=== PATIENT | male | born 1960 | race Caucasian/White ===

== ENCOUNTER 2017-04-14 15:31 | Emergency (ER) | payer SELFPAY ==
[~2017-04-14] VITALS: Ht 165.1 cm; Wt 71.4 kg
[2017-04-14] MEDS ORDERED: BACITRACIN OINT 500U/GM, 15 GM TP PRN (18:30)
[2017-04-14] MEDS ORDERED: BACITRACIN ZINC OINT 500U/GM, 0.9 GM ONE (18:39)
[2017-04-14 18:47] VITALS: BP 149/94
== END 2017-04-14 18:57 | disposition home or self-care (01) ==
LOC: ED 18:53
DX: M79.671 Pain in right foot (principal)
CPT/HCPCS: 99283

== ENCOUNTER 2018-02-14 17:56 | Emergency (ER) | payer MEDICAID, OTHER ==
[~2018-02-14] VITALS: Ht 165.1 cm; Wt 67.2 kg
[2018-02-14 18:51] LABS: BASOPHILS # (AUTO) 0.01 x10^3/uL (0-0.1); BASOPHILS % (AUTO) 0 % (0-1); EOSINOPHILS % (AUTO) 0 % (1-7); LYMPHOCYTES # (AUTO) 0.44 x10^3/uL (1-3.4); LYMPHOCYTES % (AUTO) 10 % (22-44); MD NO; MEAN CORPUSCULAR HEMOGLOBIN 31.3 pg (27.5-34.5); MEAN CORPUSCULAR HGB CONC 34.6 g/dL (33.2-36.2); MEAN CORPUSCULAR VOLUME 90.3 fL (81-97); MEAN PLATELET VOLUME 8.1 fL (7.4-10.4); MONOCYTES # (AUTO) 0.18 x10^3/uL (0.2-0.8); MONOCYTES % (AUTO) 4 % (2-9); NEUTROPHILS # (AUTO) 3.62 x10^3/uL (1.8-6.8); NEUTROPHILS % (AUTO) 85 % (42-75); PLATELET COUNT 159 x10^3/uL (130-400); RED BLOOD COUNT 4.51 x10^6/uL (4.38-5.82); RED CELL DISTRIBUTION WIDTH 13.1 % (9.4-14.8)
[2018-02-14 19:00] LABS: ALBUMIN 3.7 g/dL (3.4-5.0); ANION GAP 9 mmol/L (5-15); CHLORIDE 99 mmol/L (98-107); CREATININE 1.31 mg/dL (0.7-1.3)
[2018-02-14 19:04] LABS: TROPONIN I < 0.015 ng/mL (0.000-0.045)
[2018-02-14] MEDS ORDERED: ACETAMINOPHEN 500 MG TABLET ONE (19:05)
[2018-02-14] MEDS ORDERED: ACETAMINOPHEN 500 MG TABLET PO ONE (19:30)
[2018-02-14 19:37] VITALS: BP 105/78
[2018-02-14] MEDS ORDERED: AZITHROMYCIN 500 MG TABLET PO ONE (20:00)
[2018-02-14] MEDS ORDERED: AZITHROMYCIN 500 MG TABLET ONE (20:07)
== END 2018-02-14 22:53 | disposition home or self-care (01) ==
LOC: ED 22:51
DX: J15.9 Unspecified bacterial pneumonia (principal); R05 Cough
CPT/HCPCS: 36415; 71045; 80048; 82040; 83605; 84145; 84484; 85025; 87040; 93005; 99284

== ENCOUNTER 2018-04-19 07:32 | Emergency (ER) | payer MEDICAID ==
[~2018-04-19] VITALS: Ht 165.1 cm; Wt 69.2 kg
[2018-04-19 07:37] VITALS: BP 151/101
--- NOTE | 2018-04-19 07:49 | NUR ---
FIRST CONTACT WITH PT. ED PA at bedside. Pt presents to ED with right knee pain. NADN. All safety measures in place.
[2018-04-19] MEDS ORDERED: KETOROLAC 30 MG/1 ML ONE (07:57)
[2018-04-19] MEDS ORDERED: KETOROLAC 30 MG/1 ML IM ONE (08:00)
--- NOTE | 2018-04-19 08:49 | NUR ---
Patient given discharge instructions and they have confirmed that they understand the instructions. Patient ambulatory with steady gait. Pt left with prescription and all personal belongings and discharge paperwork.
== END 2018-04-19 08:51 | disposition home or self-care (01) ==
LOC: ED 08:05
DX: M70.41 Prepatellar bursitis, right knee (principal)
CPT/HCPCS: 96372; 99283; J1885

== ENCOUNTER 2018-09-06 21:16 | Emergency (ER) | payer MEDICAID ==
[~2018-09-06] VITALS: Ht 165.1 cm; Wt 69.1 kg
[2018-09-06 21:26] VITALS: BP 111/77
[2018-09-06 22:15] LABS: BASOPHILS # (AUTO) 0.04 x10^3/uL (0-0.1); BASOPHILS % (AUTO) 1 % (0-1); EOSINOPHILS # (AUTO) 0.28 x10^3/uL (0-0.4); EOSINOPHILS % (AUTO) 5 % (1-7); LYMPHOCYTES # (AUTO) 1.52 x10^3/uL (1-3.4); LYMPHOCYTES % (AUTO) 29 % (22-44); MD NO; MEAN CORPUSCULAR HEMOGLOBIN 32.2 pg (27.5-34.5); MEAN CORPUSCULAR HGB CONC 33.4 g/dL (33.2-36.2); MEAN CORPUSCULAR VOLUME 96.2 fL (81-97); MEAN PLATELET VOLUME 8.4 fL (7.4-10.4); MONOCYTES # (AUTO) 0.56 x10^3/uL (0.2-0.8); MONOCYTES % (AUTO) 11 % (2-9); NEUTROPHILS # (AUTO) 2.84 x10^3/uL (1.8-6.8); NEUTROPHILS % (AUTO) 54 % (42-75); PLATELET COUNT 255 x10^3/uL (130-400); RED BLOOD COUNT 3.99 x10^6/uL (4.38-5.82); RED CELL DISTRIBUTION WIDTH 13.3 % (9.4-14.8)
[2018-09-06 22:22] LABS: ANION GAP 6 mmol/L (5-15); CALCIUM 8.2 mg/dL (8.5-10.1); CHLORIDE 113 mmol/L (98-107); CREATININE 0.96 mg/dL (0.7-1.3)
== END 2018-09-06 22:57 | disposition home or self-care (01) ==
LOC: ED 22:50
DX: R60.0 Localized edema (principal); F15.10 Other stimulant abuse, uncomplicated; L55.9 Sunburn, unspecified; F17.200 Nicotine dependence, unspecified, uncomplicated
CPT/HCPCS: 36415; 80048; 85025; 99283

== ENCOUNTER 2019-05-18 21:14 | Emergency (ER) | payer MEDICAID ==
[~2019-05-18] VITALS: Ht 165.1 cm; Wt 69.1 kg
[2019-05-18 21:22] VITALS: BP 130/85
== END 2019-05-18 22:36 | disposition home or self-care (01) ==
LOC: ED 22:02
DX: J15.9 Unspecified bacterial pneumonia (principal); R06.00 Dyspnea, unspecified; F17.200 Nicotine dependence, unspecified, uncomplicated
CPT/HCPCS: 71045; 93005; 99283

== ENCOUNTER 2019-10-19 16:15 | Emergency (ER) | payer MEDICAID ==
[~2019-10-19] VITALS: Ht 165.1 cm; Wt 68.8 kg
--- NOTE | 2019-10-19 16:44 | NUR ---
TASK RN ASSISTING PRIMARY RN SARAH. 59 Y/O M PRESENTS STATING "I JUST WANT MY VITAL SIGNS CHECKED, I THINK THE HEAT OUTSIDE IS GETTING TO ME. I GOT A LETTER FROM [facility] TELLING ME I AM PREDIABETIC AND MY TRIGLYCERIDES ARE HIGH, I WENT THERE FOR HELP AND THEY WOULDN'T HELP ME OR GIVE ME ANY WATER, SO I CAME HERE TO TALK TO A REAL DOCTOR. I NEED A NEW DOCTOR." PT WITH ELEVATED BP, HX HTN "I HAVE HIGH BLOOD PRESSURE, ALWAYS HAVE, ALWAYS WILL, I DON'T TAKE ANY MEDICATIONS, I DON'T NEED THEM." CONT PULSE OX, BP MONITORS APPLIED. VSS. A&OX4. AWAITING EVALUATION BY ERP. FALL PRECAUTIONS IN PLACE, SIDE RAILS UPX2.
[2019-10-19 16:45] VITALS: BP 173/106
--- NOTE | 2019-10-19 16:52 | NUR ---
TASK RN. PT DENIES ANY CP, SOB, VALIENTE, DIZZINESS, VISUAL CHANGES, DRY MOUTH, COUGH, OR ANY PAIN. TONIA TAVAREZ AT BEDSIDE FOR EVALUATION. PT REPORTS HE "HAS FOLLOW UP APPT WITH [facility] NEXT WEEK." DISCUSSED BP WITH TONIA TAVAREZ, AWARE, NO NEW ORDERS RECEIVED AT THIS TIME.
== END 2019-10-19 17:39 | disposition home or self-care (01) ==
LOC: ED 17:36
DX: R42 Dizziness and giddiness (principal); R53.83 Other fatigue; E78.1 Pure hyperglyceridemia
CPT/HCPCS: 99281

== ENCOUNTER 2020-01-15 13:56 | Emergency (ER) | payer MEDICAID ==
[~2020-01-15] VITALS: Ht 177.8 cm; Wt 68.4 kg
[2020-01-15 15:29] VITALS: BP 128/76
[2020-01-15] MEDS ORDERED: MAGNESIUM CITRATE 300ML ORAL SOL PO ONE (15:30)
[2020-01-15] MEDS ORDERED: MAGNESIUM CITRATE 300ML ORAL SOL ONE (15:41)
== END 2020-01-15 16:03 | disposition home or self-care (01) ==
LOC: ED 14:53
DX: K59.00 Constipation, unspecified (principal); R10.84 Generalized abdominal pain; R00.0 Tachycardia, unspecified; F17.200 Nicotine dependence, unspecified, uncomplicated
CPT/HCPCS: 74021; 99283

== ENCOUNTER 2020-03-06 19:20 | Emergency (ER) | payer MEDICAID ==
[~2020-03-06] VITALS: Ht 167.6 cm; Wt 70.7 kg
--- NOTE | 2020-03-06 19:58 | NUR ---
PT STATES HE HAS INDIGESTION N/V/D X2 DAYS. PLACED ON VITALS MONITORS, CALL LIGHT PROVIDED.
[2020-03-06] MEDS ORDERED: ONDANSETRON ODT 4 MG PO ONE (20:00)
[2020-03-06] MEDS ORDERED: MAALOX/HYOSCYAMINE/LIDOCAINE 45 ML BTL PO ONE (20:00)
[2020-03-06] MEDS ORDERED: ONDANSETRON ODT 4 MG ONE (20:13)
[2020-03-06] MEDS ORDERED: MAALOX/HYOSCYAMINE/LIDOCAINE 45 ML BTL ONE (20:13)
[2020-03-06 20:23] LABS: BASOPHILS % (AUTO) 0 % (0-1); EOSINOPHILS % (AUTO) 5 % (1-7); LYMPHOCYTES % (AUTO) 21 % (22-44); MEAN CORPUSCULAR HEMOGLOBIN 31.1 pg (27.5-34.5); MEAN CORPUSCULAR HGB CONC 33.9 g/dL (33.2-36.2); MEAN PLATELET VOLUME 7.7 fL (7.4-10.4); MONOCYTES % (AUTO) 9 % (2-9); NEUTROPHILS % (AUTO) 64 % (42-75); PLATELET COUNT 252 x10^3/uL (130-400); RED BLOOD COUNT 4.87 x10^6/uL (4.38-5.82); RED CELL DISTRIBUTION WIDTH 13.1 % (9.4-14.8)
[2020-03-06 20:35] LABS: ALANINE AMINOTRANSFERASE 28 U/L (12-78); ALBUMIN 3.6 g/dL (3.4-5.0); ANION GAP 5 mmol/L (5-15); CHLORIDE 108 mmol/L (98-107); CREATININE 1.16 mg/dL (0.7-1.3)
[2020-03-06 20:37] LABS: ALKALINE PHOSPHATASE 96 U/L (45-117); BILIRUBIN,TOTAL 0.3 mg/dL (0.2-1.0); TOTAL PROTEIN 7.1 g/dL (6.4-8.2)
[2020-03-06 20:46] LABS: MD SCAN
[2020-03-06 20:58] VITALS: BP 124/82
== END 2020-03-06 21:29 | disposition home or self-care (01) ==
LOC: ED 21:23
DX: K29.00 Acute gastritis without bleeding (principal); F17.210 Nicotine dependence, cigarettes, uncomplicated
CPT/HCPCS: 36415; 80053; 83690; 85025; 99283; 99406; Q0162